=== PATIENT | male | born 1990 | race Caucasian/White ===

== ENCOUNTER 2019-08-01 22:50 | Emergency (ER) | payer OTHER ==
[2019-08-02 00:08] LABS: HIV (1/2) Antibody/Antigen Non-Reactive (NonReactive); HIV 1/2 INDEX 0.07 S/CO (<1.00); Hep C IgG Ab Non-Reactive (NonReactive); Hep C Index 0.14 S/CO (0-0.79)
[2019-08-02 00:16] LABS: HBSAB Concentration 16.34 mIU/mL; Hep B Surf AB Reactive (NonReactive)
== END 2019-08-01 23:02 | disposition home or self-care (01) ==
LOC: ERS 22:50
DX: Z77.21 Contact with and (suspected) exposure to potentially hazardous body fluids (principal)
CPT/HCPCS: 36415; 86706; 86803; 87389; 99283